=== PATIENT | female | born 1955 | race Caucasian/White ===

== ENCOUNTER 2020-05-09 12:18 | Inpatient (IN) | payer BC, MEDICARE ==
[2020-05-09] MEDS ORDERED: ASPIRIN 81 MG PO STA (12:45)
[2020-05-09] MEDS ORDERED: NITROGLYCERIN OINT 1 INCH/GM PACKET TOPICAL STA (12:45)
--- NOTE | 2020-05-09 12:49 | ED ---
General Adult HPI - General Chief complaint: Chest Pain Stated complaint: Chest Pain Time Seen by Provider: 05/09/20 12:32 Source: patient, RN notes reviewed Mode of arrival: ambulatory Limitations: no limitations - History of Present Illness Initial comments: Patient is a pleasant 64-year-old female presenting to the emergency Department with complaints of chest discomfort. Onset of symptoms was this morning. Discomfort is moderate rated 5/10. Discomfort feels like indigestion. Patient does have previous indigestion however there this is lasting longer and more severe. No radiation. Patient feels mildly nauseated. No dyspnea or diaphoresis. No leg pain or leg swelling. Patient has had high blood pressure recently. Patient saw her doctor on Monday and started enalapril. Blood pressure then was 200/110. - Related Data Allergies Allergy/AdvReac Type Severity Reaction Status Date / Time PAT Inhibitors Allergy Swelling Verified 05/09/20 12:31 Review of Systems ROS Statement: Those systems with pertinent positive or pertinent negative responses have been documented in the HPI. ROS Other: All systems not noted in ROS Statement are negative. Constitutional: Denies: fever Eyes: Denies: eye pain ENT: Denies: ear pain Respiratory: Denies: cough Cardiovascular: Reports: chest pain Endocrine: Denies: fatigue Gastrointestinal: Reports: nausea. Denies: abdominal pain Genitourinary: Denies: dysuria Musculoskeletal: Denies: back pain Skin: Denies: rash Neurological: Denies: weakness Past Medical History Past Medical History: Hypertension History of Any Multi-Drug Resistant Organisms: None Reported Past Surgical History: No Surgical Hx Reported Past Psychological History: ADD/ADHD Smoking Status: Never smoker Past Alcohol Use History: None Reported Past Drug Use History: None Reported General Exam Limitations: no limitations General appearance: alert, in no apparent distress Head exam: Present: normocephalic Eye exam: Present: normal appearance Neck exam: Present: normal inspection Respiratory exam: Present: normal lung sounds bilaterally. Absent: chest wall tenderness Cardiovascular Exam: Present: regular rate, normal rhythm Expanded Peripheral pulses: 2+: Radial (R), Radial (L), Dorsalis Pedis (R), Dorsalis Pedis (L) GI/Abdominal exam: Present: soft. Absent: tenderness Extremities exam: Present: normal inspection. Absent: pedal edema, calf tenderness Neurological exam: Present: alert Psychiatric exam: Present: normal affect, normal mood Skin exam: Present: normal color Course Vital Signs 05/09/20 12:26 Temperature 98.2 F Pulse Rate 86 Respiratory 18 Rate Blood Pressure 213/121 O2 Sat by Pulse 99 Oximetry EKG Findings - EKG Comments: EKG Findings:: Normal sinus rhythm 81. VA 158. QRS 86. QT 398. QTC 462. Normal axis. LVH criteria. No acute ST change. Medical Decision Making - Medical Decision Making Patient reevaluated and resting comfortably in bed. Blood pressure remains high despite nitroglycerin. IV Trandate ordered. Patient updated on results and plan. Dr. Carvajal has been paged for admission covering for Dr. Lopez. - Lab Data Result diagrams: 05/09/20 12:50 Lab Results 05/09/20 05/09/20 05/09/20 Range/Units 12:50 12:50 12:50 WBC 6.3 (3.8-10.6) k/uL RBC 6.19 H (3.80-5.40) m/uL Hgb 16.1 H (11.4-16.0) gm/dL Hct 49.2 H (34.0-46.0) % MCV 79.5 L (80.0-100.0) fL MCH 26.0 (25.0-35.0) pg MCHC 32.7 (31.0-37.0) g/dL RDW 13.3 (11.5-15.5) % Plt Count 310 (150-450) k/uL Neutrophils % 79 % Lymphocytes % 15 % Monocytes % 4 % Eosinophils % 1 % Basophils % 0 % Neutrophils # 5.0 (1.3-7.7) k/uL Lymphocytes # 0.9 L (1.0-4.8) k/uL Monocytes # 0.3 (0-1.0) k/uL Eosinophils # 0.1 (0-0.7) k/uL Basophils # 0.0 (0-0.2) k/uL PT 9.6 (9.0-12.0) sec INR 0.9 (<1.2) APTT 23.7 (22.0-30.0) sec Troponin I <0.012 (0.000-0.034) ng/mL - Radiology Data Radiology results: image reviewed (Chest x-ray shows no acute process) Critical Care Time Critical Care Time: Yes Total Critical Care Time: 31 Disposition Clinical Impression: Chest pain, Hypertensive urgency Disposition: ADMITTED IP TO THIS [facility] Condition: Serious Is patient prescribed a controlled substance at d/c from ED?: No Referrals: Saleem Lopez MD [Primary Care Provider] - 1-2 days Decision Time: 13:57
[2020-05-09 13:25] LABS: Basophils % (A) 0 %; Eosinophils # (A) 0.1 k/uL (0-0.7); Eosinophils % (A) 1 %; HCT 49.2 % (34.0-46.0); HGB 16.1 gm/dL (11.4-16.0); Lymphocytes # (A) 0.9 k/uL (1.0-4.8); Lymphocytes % (A) 15 %; MCHC 32.7 g/dL (31.0-37.0); MCV 79.5 fL (80.0-100.0); Mean Platelet Volume 7.2; Monocytes # (A) 0.3 k/uL (0-1.0); Monocytes % (A) 4 %; Neutrophils % (A) 79 %; Platelet Count 310 k/uL (150-450); RBC 6.19 m/uL (3.80-5.40); RDW 13.3 % (11.5-15.5); WBC 6.3 k/uL (3.8-10.6)
--- NOTE | 2020-05-09 13:34 | XR ---
EXAMINATION TYPE: XR chest 2V DATE OF EXAM: 05/09/2020 COMPARISON: Chest x-ray June 09, 2009 HISTORY: Chest pain. TECHNIQUE: Frontal and lateral views of the chest are obtained. FINDINGS: There is no focal air space opacity, pleural effusion, or pneumothorax seen. The cardiac silhouette size remains within normal limits. The osseous structures are demineralized. IMPRESSION: No acute cardiopulmonary process.
[2020-05-09 13:39] LABS: INR 0.9 (<1.2); Partial Thromboplastin Time 23.7 sec (22.0-30.0); Prothrombin Time 9.6 sec (9.0-12.0)
[2020-05-09] MEDS ORDERED: LABETALOL 5 MG/ML VIAL MDV IVP STA ×2 (13:56→14:39)
[2020-05-09] MEDS ORDERED: NITROGLYCERIN SL TABS 0.4 MG TAB SUBLINGUAL PRN (14:00)
[2020-05-09 14:26] LABS: ALT 41 U/L (4-34); AST 37 U/L (14-36); African American GFR (CKD) >90 (>60 ml/min/1.73 sqM); Albumin 4.9 g/dL (3.5-5.0); Alkaline Phosphatase 97 U/L (38-126); Anion Gap 11 mmol/L; Blood Urea Nitrogen 15 mg/dL (7-17); Calcium 10.3 mg/dL (8.4-10.2); Carbon Dioxide 27 mmol/L (22-30); Chloride 91 mmol/L (98-107); Glucose 98 mg/dL (74-99); Magnesium 1.7 mg/dL (1.6-2.3); Non-African American GFR(CKD) >90 (>60 ml/min/1.73 sqM); Potassium 3.4 mmol/L (3.5-5.1); Sodium 129 mmol/L (137-145); Total Bilirubin 0.8 mg/dL (0.2-1.3); Total Protein 8.1 g/dL (6.3-8.2)
[2020-05-09] MEDS ORDERED: ONDANSETRON 4 MG/2 ML VIAL IVP STA (14:51)
[2020-05-09] MEDS: METOPROLOL TARTRATE 25 MG TAB PO SCH ×2 (14:51→19:36)
[2020-05-09] MEDS ORDERED: NITROGLYCERIN OINT 1 INCH/GM PACKET TOPICAL SCH (18:00)
--- NOTE | 2020-05-09 21:37 | P.HPIM ---
History of Present Illness H&P Date: 05/09/20 Chief Complaint: Chest discomfort History of presenting complaint: This is a very pleasant 64-year-old patient of Dr. Saleem Lopez. Patient has known hypertension. He also takes small dose of Adderall for ADHD. Occasionally gets reflux symptoms. On Monday she went down for a physical to her family doctor who was out but is now sara she was present. Blood pressur e noted to be rather high over 200 systolic. Was prescribed medication that was apparently not available next day. Patient is told to increase her diuretic. Subsequently did get the another diuretic. Blood pressure still running about 1 170s. Today she noticed that she is having some indigestion-like symptoms in the chest. That persisted. Does not reason is no lightheadedness no perspiration. [place] tired and rundown. Has decided to come in. Blood pressure was found to be over 200 and the ER. Was given a dose of labetalol. Subsequently blood pressures come down and feeling better. Patient is relatively active otherwise. No prior cardiac history. Review of systems: GEN.: Tired EYES: None HEENT: None NECK: None RESPIRATORY: None CARDIOVASCULAR: As above GASTROINTESTINAL: Indigestion GENITOURINARY: None MUSCULOSKELETAL: None LYMPHATICS: None HEMATOLOGICAL: None PSYCHIATRY: Occasional anxiety NEUROLOGICAL: None Past medical history to include: Essential hypertension, ADHD, GERD Social history: Lives alone. Does not smoke or drink alcohol. Physical examination: VITAL SIGNS: 98.2, 86, 18, 1:30 no 121, 99% on room air GENERAL: BMI 29.1, sitting up, comfortable. EYES: Pupils equal. Conjunctiva normal. HEENT: External appearance of nose and ears normal, oral cavity grossly normal. NECK: JVD not raised; masses not palpable. HEART: First and second heart sounds are normal; no edema. LUNGS: Respiratory rate normal; clear to auscultation. ABDOMEN: Soft, nontender, liver spleen not palpable, no masses palpable. PSYCH: Alert and oriented x3; mood and affect normal. NEUROLOGICAL: Cranial nerves grossly intact; no facial asymmetry, power and sensation grossly intact. LYMPHATICS: No lymph nodes palpable in the axilla and neck INVESTIGATIONS, reviewed in the clinical context: White count 6.3 hemoglobin 16.1 platelets 310 potassium 3.4 sodium 129 crea tinine 0.48 potassium 10.3 Troponin I less than 0.0123 EKG tracing personally reviewed by me-sinus rhythm, LVH Chest x-ray film personally reviewed by me-lung garcia clear Assessment: -Hypertensive urgency -Hyponatremia due to diuretics -Hypokalemia due to diuretics -Hypocalcemia due to diuretics Plan: Patient is put on Lopressor in the ER. We'll also had lisinopril hydrochlorothiazide twice a day along with the Lopressor. We'll do a 2-D echocardiogram. Patient can have a stress test as outpatient. Cardiology opinion. Care was discussed with the patient question also. Past Medical History Past Medical History: Hypertension History of Any Multi-Drug Resistant Organisms: None Reported Past Surgical History: No Surgical Hx Reported Past Psychological History: ADD/ADHD Smoking Status: Never smoker Past Alcohol Use History: None Reported Past Drug Use History: None Reported - Past Family History Father Family Medical History: Dementia Mother Family Medical History: No Reported History Medications and Allergies Home Medications Medication Instructions Recorded Confirmed Type ALPRAZolam [Xanax] 0.25 mg PO BID PRN 05/09/20 05/09/20 History Triamterene 50 mg PO DAILY 05/09/20 05/09/20 History hydroCHLOROthiazide 25 mg PO DAILY 05/09/20 05/09/20 History Allergies Allergy/AdvReac Type Severity Reaction Status Date / Time PAT Inhibitors Allergy Swelling Verified 05/09/20 14:24 Physical Exam Vitals: Vital Signs Temp Pulse Pulse Resp BP BP Pulse Ox 05/09/20 15:47 98 F 71 16 126/78 97 05/09/20 15:28 152/85 05/09/20 15:12 82 16 150/104 100 05/09/20 14:54 76 18 180/108 97 05/09/20 14:34 69 16 183/102 98 05/09/20 14:08 64 16 203/127 98 05/09/20 12:26 98.2 F 86 18 213/121 99 Intake and Output 05/09/20 05/09/20 05/09/20 06:59 14:59 22:59 Other: Weight 81.647 kg 81.647 kg Results CBC & Chem 7: 05/09/20 12:50 05/09/20 14:01 Labs: Abnormal Lab Results - Last 24 Hours (Table) 05/09/20 05/09/20 Range/Units 12:50 14:01 RBC 6.19 H (3.80-5.40) m/uL Hgb 16.1 H (11.4-16.0) gm/dL Hct 49.2 H (34.0-46.0) % MCV 79.5 L (80.0-100.0) fL Lymphocytes # 0.9 L (1.0-4.8) k/uL Sodium 129 L (137-145) mmol/L Potassium 3.4 L (3.5-5.1) mmol/L Chloride 91 L (98-107) mmol/L Creatinine 0.48 L (0.52-1.04) mg/dL Calcium 10.3 H (8.4-10.2) mg/dL AST 37 H (14-36) U/L ALT 41 H (4-34) U/L Thrombosis Risk Factor Assmnt - Choose All That Apply Any of the Below Risk Factors Present?: Yes Other Risk Factors: Yes Each Risk Factor Represents 2 Points: Age 61-74 years Other congenital or acquired thrombophilia - If yes, enter type in comment: No Thrombosis Risk Factor Assessment Total Risk Factor Score: 2 Thrombosis Risk Factor Assessment Level: Low Risk
[2020-05-09] MEDS ORDERED: CALCIUM CARBONATE 500 MG CHEWABLE PO PRN (21:39)
[2020-05-09] MEDS ORDERED: MAG HYDROX/AL HYDROX/SIMETH 30 ML CUP PO PRN (21:39)
[2020-05-09] MEDS ORDERED: ALPRAZolam 0.25 MG TAB PO PRN (21:39)
[2020-05-09] MEDS ORDERED: ACETAMINOPHEN TAB 325 MG TAB PO PRN (21:39)
[2020-05-09] MEDS ORDERED: LACTULOSE 20 GM/30 ML CUP PO PRN (21:39)
[2020-05-09] MEDS ORDERED: NALOXONE 0.4 MG/ML 1 ML VIAL IV PRN (21:39)
[2020-05-09] MEDS ORDERED: MELATONIN 3 MG TABLET PO PRN (21:39)
[2020-05-09] MEDS ORDERED: MAGNESIUM HYDROXIDE 2,400 MG/10 ML CUP PO PRN (21:39)
[2020-05-09] MEDS ORDERED: SODIUM CHLORIDE 0.9% 1,000 ML IV SCH (21:45)
[2020-05-09] MEDS: METOPROLOL TARTRATE 50 MG TAB PO SCH (23:03)
[2020-05-10] MEDS: FAMOTIDINE 20 MG TAB PO SCH ×2 (01:12→08:53)
[2020-05-10] MEDS: ENOXAPARIN 40 MG/0.4 ML SYRINGE SQ SCH ×2 (01:12→08:53)
[2020-05-10 08:01] LABS: African American GFR (CKD) >90 (>60 ml/min/1.73 sqM); Anion Gap 9 mmol/L; Blood Urea Nitrogen 18 mg/dL (7-17); Calcium 10.3 mg/dL (8.4-10.2); Carbon Dioxide 28 mmol/L (22-30); Chloride 99 mmol/L (98-107); Cholesterol 271 mg/dL (<200); Glucose 95 mg/dL (74-99); HDL Cholesterol 104 mg/dL (40-60); LDL Cholesterol,Calculated 150 mg/dL (0-99); Non-African American GFR(CKD) >90 (>60 ml/min/1.73 sqM); Potassium 3.8 mmol/L (3.5-5.1); Sodium 136 mmol/L (137-145); Triglycerides 85 mg/dL (<150)
[2020-05-10 08:24] VITALS: RESP 18
[2020-05-10] MEDS: METOPROLOL TARTRATE 50 MG TAB PO SCH (08:54)
[2020-05-10] MEDS ORDERED: ASPIRIN 325 MG TAB PO SCH (09:00)
[2020-05-10] MEDS ORDERED: amLODIPine 5 MG TAB PO SCH (09:00)
[2020-05-10] MEDS ORDERED: ASPIRIN 81 MG PO SCH (09:00)
--- NOTE | 2020-05-10 10:35 | P.CRDCN ---
History of Present Illness History of present illness: HISTORY OF PRESENTING ILLNESS This is a pleasant 64-year-old female past medical history significant for hypertension and recent diagnosis of shingles. Does not follow the office with a trim sawyer for any reason. We have been asked to see in consultation for chest pain and hypertension. She states for the previous one week her blood pressures have been elevated. She has been working with her primary care physician in the recently increased her treatment. To 50 mg daily however her blood pressure remains elevated. She was advised to come to the hospital for further evaluation. On admission her blood pressure was 213/121. She was given IV labetalol, Lopressor and Norvasc. Her blood pressure this morning is 141/80. Heart rates in the 60s. She also states at times typically at night she has a burning sensation in the midsternal region that is resolved by taking Clarita- [place]. The pain does not radiate to the back, arm, neck or jaw. She has no associated shortness of breath, dizziness, nausea, vomiting, palpitations or diaphoresis. She states she underwent a stress test approximately 20 years ago when she was first diagnosed with hypertension. DIAGNOSTICS EKG reveals sinus mechanism with no acute ST or T wave abnormalities noted. Chest xray negative for an acute cardiopulmonary process. Laboratory reviewed, WBC 6.3, hemoglobin 16.1, platelets 310, sodium on admission 120 9 repeat today 136, potassium 3.8, creatinine 0.6, magnesium 1.7, cardiac enzymes negative 3, LDL 150 and HDL 104. Current cardiac medications include Triaminic care and 50 mg daily and hydrochlorothiazide 25 mg daily. REVIEW OF SYSTEMS At the time of my exam: CONSTITUTIONAL: Denies fever or chills. CARDIOVASCULAR: Denies chest pain, shortness of breath, orthopnea, PND or palpitations. RESPIRATORY: Denies cough. GASTROINTESTINAL: Denies abdominal pain, diarrhea, constipation, nausea or vomiting. MUSCULOSKELETAL: Denies myalgias. NEUROLOGIC: Denies numbness, tingling or weakness. ENDOCRINE: Denies fatigue, weight change, polydipsia or polyurina. GENITOURINARY: Denies burning, hematuria or urgency with micturation. HEMATOLOGIC: Denies history of anemia or bleeding. PHYSICAL EXAMINATION Blood pressure 144/89 heart rate 74 afebrile and maintaining oxygen saturation on room air. CONSTITUTIONAL: No apparent distress. HEENT: Head is normocephalic. Pupils are equal, round. Sclerae anicteric. Mucous membranes of the mouth are moist. No JVD. No carotid bruit. CHEST EXAMINATION: Lungs are clear to auscultation. No chest wall tenderness is noted on palpation or with deep breathing. HEART EXAMINATION: Regular rate and rhythm. S1, S2 heard. No murmurs, gallops or rub. ABDOMEN: Soft, nontender. Positive bowel sounds. Erythema and irritation noted to the right flank. EXTREMITIES: 2+ peripheral pulses, no lower extremity edema and no calf tenderness. NEUROLOGIC EXAMINATION: Patient is awake, alert and oriented x3. ASSESSMENT Chest pain, atypical for angina. An acute coronary event has been ruled out Hypertensive urgency Shingles Dyslipidemia PLAN An acute coronary event has been ruled out. Pain is atypical for angina and resolved with antacids. Discussed with the patient keeping her overnight for stress test in the morning and she would prefer to do this as an outpatient. This is a reasonable plan given her normal EKG and normal cardiac enzymes. Advised the patient to ambulate the halls and assess for exertional chest discomfort. Initiate aspirin 81 mg daily and atorvastatin 40 mg daily. Blood pressure seems well controlled on current regimen. Stable for discharge to follow-up in the office with Dr. Chandler in one to 2 weeks for outpatient stress testing. Thank you kindly for this consultation. Nurse Practitioner note has been reviewed, I agree with a documented findings and plan of care. Patient was seen and examined. Past Medical History Past Medical History: Hypertension History of Any Multi-Drug Resistant Organisms: None Reported Past Surgical History: No Surgical Hx Reported Past Psychological History: ADD/ADHD Smoking Status: Never smoker Past Alcohol Use History: None Reported Past Drug Use History: None Reported - Past Family History Father Family Medical History: Dementia Mother Family Medical History: No Reported History Medications and Allergies Home Medications Medication Instructions Recorded Confirmed Type ALPRAZolam [Xanax] 0.25 mg PO BID PRN 05/09/20 05/09/20 History Triamterene 50 mg PO DAILY 05/09/20 05/09/20 History hydroCHLOROthiazide 25 mg PO DAILY 05/09/20 05/09/20 History Allergies Allergy/AdvReac Type Severity Reaction Status Date / Time PAT Inhibitors Allergy Swelling Verified 05/09/20 14:24 Physical Exam Vitals: Vital Signs Temp Pulse Pulse Resp BP BP Pulse Ox 05/10/20 04:00 98.3 F 66 16 141/80 96 05/09/20 23:45 146/82 05/09/20 23:00 98.1 F 78 16 171/83 98 05/09/20 20:00 16 05/09/20 19:30 98.2 F 86 16 139/84 99 05/09/20 15:47 98 F 71 16 126/78 97 05/09/20 15:28 152/85 05/09/20 15:12 82 16 150/104 100 05/09/20 14:54 76 18 180/108 97 05/09/20 14:34 69 16 183/102 98 05/09/20 14:08 64 16 203/127 98 05/09/20 12:26 98.2 F 86 18 213/121 99 Intake and Output 05/09/20 05/10/20 05/10/20 22:59 06:59 14:59 Intake Total 540 Balance 540 Intake: Oral 540 Other: # Voids 1 Weight 81.647 kg 80.2 kg Results 05/09/20 12:50 05/10/20 07:08 Cardiac Enzymes 05/09/20 05/09/20 05/09/20 Range/Units 12:50 14:01 14:09 AST 37 H (14-36) U/L Troponin I <0.012 <0.012 (0.000-0.034) ng/mL 05/09/20 Range/Units 16:58 AST (14-36) U/L Troponin I <0.012 (0.000-0.034) ng/mL Coagulation 05/09/20 Range/Units 12:50 PT 9.6 (9.0-12.0) sec APTT 23.7 (22.0-30.0) sec Lipids 05/10/20 Range/Units 07:08 Triglycerides 85 (<150) mg/dL Cholesterol 271 H (<200) mg/dL HDL Cholesterol 104 H (40-60) mg/dL CBC 05/09/20 Range/Units 12:50 WBC 6.3 (3.8-10.6) k/uL RBC 6.19 H (3.80-5.40) m/uL Hgb 16.1 H (11.4-16.0) gm/dL Hct 49.2 H (34.0-46.0) % Plt Count 310 (150-450) k/uL Comprehensive Metabolic Panel 05/09/20 05/10/20 Range/Units 14:01 07:08 Sodium 129 L 136 L (137-145) mmol/L Potassium 3.4 L 3.8 (3.5-5.1) mmol/L Chloride 91 L 99 (98-107) mmol/L Carbon Dioxide 27 28 (22-30) mmol/L BUN 15 18 H (7-17) mg/dL Creatinine 0.48 L 0.60 (0.52-1.04) mg/dL Glucose 98 95 (74-99) mg/dL Calcium 10.3 H 10.3 H (8.4-10.2) mg/dL AST 37 H (14-36) U/L ALT 41 H (4-34) U/L Alkaline Phosphatase 97 (38-126) U/L Total Protein 8.1 (6.3-8.2) g/dL Albumin 4.9 (3.5-5.0) g/dL Current Medications Generic Name Dose Route Start Last Admin Trade Name Freq PRN Reason Stop Dose Admin Acetaminophen 650 mg 05/09/20 21:39 Acetaminophen Tab 325 Mg Tab PO Q6HR PRN Mild Pain or Fever > 100.5 Al Hydroxide/Mg Hydroxide 15 ml 05/09/20 21:39 Mag Hydrox/Al Hydrox/Simeth 30 Ml Cup PO Q6HR PRN Indigestion Alprazolam 0.25 mg 05/09/20 21:39 Alprazolam 0.25 Mg Tab PO Q6HR PRN Anxiety Amlodipine Besylate 2.5 mg 05/10/20 09:00 Amlodipine 5 Mg Tab PO DAILY [facility] Aspirin 325 mg 05/10/20 09:00 Aspirin 325 Mg Tab PO DAILY [facility] Calcium Carbonate/Glycine 1,000 mg 05/09/20 21:39 Calcium Carbonate 500 Mg Chewable PO Q4HR PRN Dyspepsia Enoxaparin Sodium 40 mg 05/09/20 22:00 05/10/20 01:12 Enoxaparin 40 Mg/0.4 Ml Syringe SQ Not Given DAILY [facility] Famotidine 20 mg 05/09/20 21:45 05/10/20 01:12 Famotidine 20 Mg Tab PO Not Given BID [facility] Lactulose 20 gm 05/09/20 21:39 Lactulose 20 Gm/30 Ml Cup PO DAILY PRN Constipation Magnesium Hydroxide 2,400 mg 05/09/20 21:39 Magnesium Hydroxide 2,400 Mg/10 Ml Cup PO DAILY PRN Constipation Melatonin 3 mg 05/09/20 21:39 Melatonin 3 Mg Tablet PO HS PRN Insomnia Metoprolol Tartrate 50 mg 05/09/20 22:00 05/09/20 23:03 Metoprolol Tartrate 50 Mg Tab PO 50 mg BID CAROL Administration Naloxone HCl 0.2 mg 05/09/20 21:39 Naloxone 0.4 Mg/Ml 1 Ml Vial IV Q2M PRN Opioid Reversal Nitroglycerin 0.4 mg 05/09/20 14:00 Nitroglycerin Sl Tabs 0.4 Mg Tab SUBLINGUAL Q5M PRN Chest Pain Sodium Chloride 10 ml 05/09/20 21:00 05/10/20 01:11 Sodium Chloride 0.9% Flush 10 Ml Syringe IV Not Given BID CAROL Intake and Output 05/09/20 05/10/20 05/10/20 22:59 06:59 14:59 Intake Total 540 Balance 540 Intake: Oral 540 Other: # Voids 1 Weight 81.647 kg 80.2 kg 05/09/20 12:50 05/10/20 07:08
[2020-05-10] MEDS ORDERED: ATORVASTATIN 40 MG TAB PO SCH (10:45)
[2020-05-10 12:03] VITALS: BP 154/92; PULSE 72; TEMP 98.4
--- NOTE | 2020-05-10 20:46 | P.DS ---
Providers Date of admission: 05/09/20 14:00 Expected date of discharge: 05/10/20 Attending physician: Claudio Caravjal Consults: 05/09/20 14:00 Consult Physician Urgent Consulting Provider: Sol Oneal Consult Reason/Comments: Chest pain, hypertensive urgency Do you want consulting provider notified?: Yes Primary care physician: Saleem Lopez MD Hospital Course: Chief Complaint: Chest discomfort History of presenting complaint: This is a very pleasant 64-year-old patient of Dr. Saleem Lopez. Patient has known hypertension. He also takes small dose of Adderall for ADHD. Occasionally gets reflux symptoms. On Monday she went down for a physical to her family doctor who was out but saw the nurse practitioner. Blood pressure noted to be rather high over 200 systolic. Was prescribed diuretics that was apparently not available next day. Patient is told to increase her diuretic. Subsequently did get the another diuretic. Blood pressure still running about 170s. Today she noticed that she is having some indigestion-like symptoms in the chest. That persisted. Does not reason is no lightheadedness no perspiration. [place] tired and rundown. Has decided to come in. Blood pressure was found to be over 200 and the ER. Was given a dose of labetalol. Subsequently blood pressures come down and feeling better. Patient is rela tively active otherwise. No prior cardiac history. Today feeling well. He received Lopressor and amlodipine. Blood pressure better controlled. Oral feeling much better. Care was discussed in detail with the patient. Also discussed started on Lipitor. She'll follow-up with any side effects with the PCP. Questions answered. Follow with cardiology Discussion and discharge planning more than 35 minutes Consultation: Dr. Goldy Chandler from cardiology Physical examination: VITAL SIGNS: 98.4, 72, 18, 154/92, 98% on room air GENERAL: Sitting up, comfortable EYES: Pupils equal. Conjunctiva normal. NECK: JVD not raised; masses not palpable. HEART: First and second heart sounds are normal; no edema. LUNGS: Respiratory rate normal; clear to auscultation. ABDOMEN: Soft, nontender, liver spleen not palpable, no masses palpable. PSYCH: Alert and oriented x3; mood and affect normal. INVESTIGATIONS, reviewed in the clinical context: Sodium 136 potassium 3.8 creatinine 0.60 Admission testing White count 6.3 hemoglobin 16.1 platelets 310 potassium 3.4 sodium 129 creatinine 0.48 potassium 10.3 Troponin I less than 0.0123 EKG tracing personally reviewed by me-sinus rhythm, LVH Chest x-ray film personally reviewed by me-lung garcia clear Assessment: -Hypertensive urgency-improve -Hyponatremia due to diuretics-improved -Hypokalemia due to diuretics improved -Hypercalcemia due to diuretics Disposition: Home Patient Condition at Discharge: Stable Plan - Discharge Summary Discharge Rx Participant: No New Discharge Prescriptions: New Aspirin 81 mg PO DAILY #30 chew Atorvastatin Calcium [Lipitor] 20 mg PO HS #30 tab Metoprolol Tartrate [Lopressor] 50 mg PO BID #60 tab amLODIPine [Norvasc] 2.5 mg PO DAILY #30 tab Famotidine [Pepcid] 20 mg PO BID #60 tab Continue ALPRAZolam [Xanax] 0.25 mg PO BID PRN PRN Reason: Anxiety Discontinued hydroCHLOROthiazide 25 mg PO DAILY Triamterene 50 mg PO DAILY Discharge Medication List ALPRAZolam [Xanax] 0.25 mg PO BID PRN 05/09/20 [History] Aspirin 81 mg PO DAILY #30 chew 05/10/20 [Rx] Atorvastatin Calcium [Lipitor] 20 mg PO HS #30 tab 05/10/20 [Rx] Famotidine [Pepcid] 20 mg PO BID #60 tab 05/10/20 [Rx] Metoprolol Tartrate [Lopressor] 50 mg PO BID #60 tab 05/10/20 [Rx] amLODIPine [Norvasc] 2.5 mg PO DAILY #30 tab 05/10/20 [Rx] Follow up Appointment(s)/Referral(s): Saleem Lopez MD [Primary Care Provider] - 1-2 days (call office monday for f/u appt) Hai Chandler MD [STAFF PHYSICIAN] - 2 Weeks (call office monday for f/u appointment) Patient Instructions/Handouts: Heart Healthy Diet (DC), Hypertension (DC) Discharge Disposition: HOME SELF-CARE
== END 2020-05-10 14:19 | disposition home or self-care (01) | DRG 305 ==
LOC: EC 12:18 → 3SCARD 14:00
PROVIDERS: ADMIT Hospitalist; ATTEND Hospitalist
DX: I16.0 Hypertensive urgency (principal); E87.1 Hypo-osmolality and hyponatremia; I10 Essential (primary) hypertension; F90.9 Attention-deficit hyperactivity disorder, unspecified type; E87.6 Hypokalemia; E83.52 Hypercalcemia; E78.5 Hyperlipidemia, unspecified; T50.2X5A Adverse effect of carbonic-anhydrase inhibitors, benzothiadiazides and other diuretics, initial encounter; Z79.899 Other long term (current) drug therapy; B02.9 Zoster without complications; Z82.0 Family history of epilepsy and other diseases of the nervous system; Z88.8 Allergy status to other drugs, medicaments and biological substances; R07.9 Chest pain, unspecified
CPT/HCPCS: 36415; 71046; 80048; 80053; 80061; 83735; 84484; 85025; 85610; 85730; 93005; 96374; 96375; 96376; 99291

== ENCOUNTER 2020-05-11 16:28 | Observation (INO) | payer MEDICARE ==
[2020-05-11 17:42] LABS: Basophils % (A) 0 %; Eosinophils # (A) 0.2 k/uL (0-0.7); Eosinophils % (A) 3 %; HCT 42.6 % (34.0-46.0); HGB 14.1 gm/dL (11.4-16.0); Lymphocytes # (A) 1.9 k/uL (1.0-4.8); Lymphocytes % (A) 27 %; MCH 26.4 pg (25.0-35.0); Mean Platelet Volume 6.7; Monocytes # (A) 0.4 k/uL (0-1.0); Monocytes % (A) 6 %; Neutrophils # (A) 4.3 k/uL (1.3-7.7); Neutrophils % (A) 62 %; Platelet Count 272 k/uL (150-450); RBC 5.33 m/uL (3.80-5.40); RDW 13.4 % (11.5-15.5); WBC 6.9 k/uL (3.8-10.6)
[2020-05-11] MEDS ORDERED: NITROGLYCERIN OINT 1 INCH/GM PACKET TOPICAL STA (17:47)
--- NOTE | 2020-05-11 17:57 | XR ---
EXAMINATION TYPE: XR chest 2V DATE OF EXAM: 05/11/2020 COMPARISON: 05/09/2020 HISTORY: Chest pain TECHNIQUE: FINDINGS: Heart is normal. Lungs are clear of infiltrate. There is no heart failure. Costophrenic ang les are clear. There are chest leads. Bony thorax is intact. IMPRESSION: No active cardiopulmonary disease. Normal heart. No change.
[2020-05-11 18:01] LABS: D-Dimer 0.36 mg/L FEU (<0.60); INR 0.9 (<1.2); Partial Thromboplastin Time 22.7 sec (22.0-30.0); Prothrombin Time 9.6 sec (9.0-12.0)
[2020-05-11 18:03] LABS: ALT 50 U/L (4-34); AST 44 U/L (14-36); African American GFR (CKD) >90 (>60 ml/min/1.73 sqM); Albumin 4.5 g/dL (3.5-5.0); Alkaline Phosphatase 83 U/L (38-126); Anion Gap 6 mmol/L; Blood Urea Nitrogen 19 mg/dL (7-17); Carbon Dioxide 28 mmol/L (22-30); Chloride 103 mmol/L (98-107); Creatine Kinase 71 U/L (30-135); Glucose 87 mg/dL (74-99); Magnesium 1.7 mg/dL (1.6-2.3); Non-African American GFR(CKD) >90 (>60 ml/min/1.73 sqM); Potassium 3.5 mmol/L (3.5-5.1); Sodium 137 mmol/L (137-145); Total Bilirubin 0.5 mg/dL (0.2-1.3); Total Protein 7.2 g/dL (6.3-8.2)
--- NOTE | 2020-05-11 18:05 | ED ---
Chest Pain HPI - General Chief Complaint: Chest Pain Stated Complaint: chest pain-revisit Time Seen by Provider: 05/11/20 16:42 Source: patient, RN notes reviewed, old records reviewed Mode of arrival: wheelchair Limitations: no limitations - History of Present Illness Initial Comments: This is a 64-year-old female who was just discharged from this hospital yesterday after evaluation for chest pain who states she had recurrence of her chest pain she states goes across her back and brought strap level and also has pain anterior chest wall. She states the pain is about 5/10 severity perhaps up to 8/10 it feels similar to what she was admitted with last week. No was chills nausea vomiting sweats or other symptoms a few makes it better nothing makes it worse. She did know is her blood pressures elevated also. MD Complaint: chest pain - Related Data Home Medications Medication Instructions Recorded Confirmed ALPRAZolam [Xanax] 0.25 mg PO BID PRN 05/09/20 05/09/20 Previous Rx's Medication Instructions Recorded Aspirin 81 mg PO DAILY #30 chew 05/10/20 Atorvastatin Calcium [Lipitor] 20 mg PO HS #30 tab 05/10/20 Famotidine [Pepcid] 20 mg PO BID #60 tab 05/10/20 Metoprolol Tartrate [Lopressor] 50 mg PO BID #60 tab 05/10/20 amLODIPine [Norvasc] 2.5 mg PO DAILY #30 tab 05/10/20 Allergies Allergy/AdvReac Type Severity Reaction Status Date / Time PAT Inhibitors Allergy Swelling Verified 05/11/20 16:38 Review of Systems ROS Statement: Those systems with pertinent positive or pertinent negative responses have been documented in the HPI. ROS Other: All systems not noted in ROS Statement are negative. EKG Findings - EKG Results: EKG: interpreted by NANO, sinus rhythm (Sinus rhythm a 6156 QRS 86 QT since QTC 360/[address]-T wave changes) Past Medical History Past Medical History: Hypertension History of Any Multi-Drug Resistant Organisms: None Reported Past Surgical History: No Surgical Hx Reported Past Psychological History: ADD/ADHD Smoking Status: Never smoker Past Alcohol Use History: None Reported Past Drug Use History: None Reported - Past Family History Father Family Medical History: Dementia Mother Family Medical History: No Reported History General Exam - General Exam Comments Initial Comments: This is a well-developed well-nourished awake alert oriented 3 female Limitations: no limitations General appearance: alert, in no apparent distress Head exam: Present: atraumatic, normocephalic, normal inspection Eye exam: Present: normal appearance, PERRL, EOMI. Absent: scleral icterus, conjunctival injection, periorbital swelling ENT exam: Present: normal exam, mucous membranes moist Neck exam: Present: normal inspection. Absent: tenderness, meningismus, lymphadenopathy Respiratory exam: Present: normal lung sounds bilaterally. Absent: respiratory distress, wheezes, rales, rhonchi, stridor Cardiovascular Exam: Present: regular rate, normal rhythm, normal heart sounds. Absent: systolic murmur, diastolic murmur, rubs, gallop, clicks GI/Abdominal exam: Present: soft, normal bowel sounds. Absent: distended, tenderness, guarding, rebound, rigid Extremities exam: Present: normal inspection, full ROM, normal capillary refill. Absent: tenderness, pedal edema, joint swelling, calf tenderness Back exam: Present: normal inspection Neurological exam: Present: alert, oriented X3, CN II-XII intact Psychiatric exam: Present: normal affect, normal mood Skin exam: Present: warm, dry, intact, normal color. Absent: rash Course Vital Signs 05/11/20 05/11/20 05/11/20 16:35 18:11 18:30 Temperature 98.4 F Pulse Rate 83 74 Respiratory 18 Rate Blood Pressure 186/93 209/104 209/104 O2 Sat by Pulse 97 99 Oximetry Chest Pain MDM - MDM Imaging reviewed no acute findings. Patient did get relief with nitroglycerin. She'll be admitted the case was discussed with Dr. Carvajal. Cardiology will be consulted Disposition Clinical Impression: Unstable angina pectoris, Chest pain Disposition: ADMITTED IP TO THIS [facility] Condition: Stable Referrals: Saleem Lopez MD [Primary Care Provider] - 1-2 days
[2020-05-11] MEDS ORDERED: SODIUM CHLORIDE 0.9% 1,000 ML IV STA (18:17)
[2020-05-11] MEDS ORDERED: cloNIDine HCL 0.1 MG TAB PO STA (18:55)
[2020-05-11] MEDS ORDERED: NITROGLYCERIN SL TABS 0.4 MG TAB SUBLINGUAL PRN (19:11)
[2020-05-11] MEDS ORDERED: HEPARIN SODIUM,PORCINE 5,000 UNIT/ML 1 ML VIAL IV ONE (19:11)
[2020-05-11] MEDS ORDERED: HEPARIN SOD,PORK IN 0.45% NACL 25,000 UNIT in 0.45% NACL 1 250ML.BAG IV SCH (19:15)
--- NOTE | 2020-05-11 19:15 | ED ---
Medical Decision Making - Medical Decision Making Patient did demonstrate elevated blood pressure in spite of IV hydration and her Usual medication she was given oral Catapres. - Lab Data Result diagrams: 05/11/20 17:28 05/11/20 17:28 Lab Results 05/11/20 05/11/20 05/11/20 Range/Units 17:28 17:28 17:28 WBC 6.9 (3.8-10.6) k/uL RBC 5.33 (3.80-5.40) m/uL Hgb 14.1 (11.4-16.0) gm/dL Hct 42.6 (34.0-46.0) % MCV 80.0 (80.0-100.0) fL MCH 26.4 (25.0-35.0) pg MCHC 33.0 (31.0-37.0) g/dL RDW 13.4 (11.5-15.5) % Plt Count 272 (150-450) k/uL Neutrophils % 62 % Lymphocytes % 27 % Monocytes % 6 % Eosinophils % 3 % Basophils % 0 % Neutrophils # 4.3 (1.3-7.7) k/uL Lymphocytes # 1.9 (1.0-4.8) k/uL Monocytes # 0.4 (0-1.0) k/uL Eosinophils # 0.2 (0-0.7) k/uL Basophils # 0.0 (0-0.2) k/uL PT 9.6 (9.0-12.0) sec INR 0.9 (<1.2) APTT 22.7 (22.0-30.0) sec D-Dimer 0.36 (<0.60) mg/L FEU Sodium 137 (137-145) mmol/L Potassium 3.5 (3.5-5.1) mmol/L Chloride 103 (98-107) mmol/L Carbon Dioxide 28 (22-30) mmol/L Anion Gap 6 mmol/L BUN 19 H (7-17) mg/dL Creatinine 0.51 L (0.52-1.04) mg/dL Est GFR (CKD-EPI)AfAm >90 (>60 ml/min/1.73 sqM) Est GFR (CKD-EPI)NonAf >90 (>60 ml/min/1.73 sqM) Glucose 87 (74-99) mg/dL Calcium 10.0 (8.4-10.2) mg/dL Magnesium 1.7 (1.6-2.3) mg/dL Total Bilirubin 0.5 (0.2-1.3) mg/dL AST 44 H (14-36) U/L ALT 50 H (4-34) U/L Alkaline Phosphatase 83 (38-126) U/L Creatine Kinase 71 (30-135) U/L Troponin I (0.000-0.034) ng/mL NT-Pro-B Natriuret Pep pg/mL Total Protein 7.2 (6.3-8.2) g/dL Albumin 4.5 (3.5-5.0) g/dL Lipase 114 (23-300) U/L 05/11/20 05/11/20 Range/Units 17:28 17:28 WBC (3.8-10.6) k/uL RBC (3.80-5.40) m/uL Hgb (11.4-16.0) gm/dL Hct (34.0-46.0) % MCV (80.0-100.0) fL MCH (25.0-35.0) pg MCHC (31.0-37.0) g/dL RDW (11.5-15.5) % Plt Count (150-450) k/uL Neutrophils % % Lymphocytes % % Monocytes % % Eosinophils % % Basophils % % Neutrophils # (1.3-7.7) k/uL Lymphocytes # (1.0-4.8) k/uL Monocytes # (0-1.0) k/uL Eosinophils # (0-0.7) k/uL Basophils # (0-0.2) k/uL PT (9.0-12.0) sec INR (<1.2) APTT (22.0-30.0) sec D-Dimer (<0.60) mg/L FEU Sodium (137-145) mmol/L Potassium (3.5-5.1) mmol/L Chloride (98-107) mmol/L Carbon Dioxide (22-30) mmol/L Anion Gap mmol/L BUN (7-17) mg/dL Creatinine (0.52-1.04) mg/dL Est GFR (CKD-EPI)AfAm (>60 ml/min/1.73 sqM) Est GFR (CKD-EPI)NonAf (>60 ml/min/1.73 sqM) Glucose (74-99) mg/dL Calcium (8.4-10.2) mg/dL Magnesium (1.6-2.3) mg/dL Total Bilirubin (0.2-1.3) mg/dL AST (14-36) U/L ALT (4-34) U/L Alkaline Phosphatase (38-126) U/L Creatine Kinase (30-135) U/L Troponin I <0.012 (0.000-0.034) ng/mL NT-Pro-B Natriuret Pep 196 pg/mL Total Protein (6.3-8.2) g/dL Albumin (3.5-5.0) g/dL Lipase (23-300) U/L Disposition Clinical Impression: Unstable angina pectoris, Chest pain, Hypertension Disposition: ADMITTED IP TO THIS HOSP Condition: Stable Referrals: Saleem Lopez MD [Primary Care Provider] - 1-2 days
[2020-05-11] MEDS ORDERED: METOPROLOL TARTRATE 5 MG/5 ML VIAL IVP STA (19:25)
[2020-05-11] MEDS: ALPRAZolam 0.25 MG TAB PO PRN (19:34)
[2020-05-11] MEDS: SODIUM CHLORIDE 0.9% 1,000 ML IV SCH (19:34)
[2020-05-11] MEDS ORDERED: METOPROLOL TARTRATE 50 MG TAB PO SCH (21:00)
[2020-05-11] MEDS: FAMOTIDINE 20 MG TAB PO SCH (21:51)
[2020-05-11] MEDS: ATORVASTATIN 20 MG TAB PO SCH (21:51)
--- NOTE | 2020-05-11 21:58 | P.HPIM ---
History of Present Illness H&P Date: 05/11/20 Chief Complaint: upper back pain History of presenting complaint: This is a very pleasant 64-year-old patient of Dr. Saleem Lopez. Patient has known hypertension. He also takes small dose of Adderall for ADHD. Occasionally gets reflux symptoms. patient was just in the hospital from May 09 through May 10 that is yesterday. Had presented with hypertensive urgency. Patient was discharged on Lopressor and amlodipine.patient's discharge blood pressure was 154/92. Patient also had some chest discomfort. Was seen by cardiology. Plan was to follow-up as an outpatient.patient this morning around 3:00 woke up and was having some pain across the back. No dizziness no lightheadedness no perspiration. Came into the ER with a blood pressure over 200 systolic. A bit tired. Patient is also been healing from shingles in the left hip area. Has been present for a few days. She states she is not slept well for quite a few days. Review of systems: GEN.: Tired EYES: None HEENT: None NECK: None RESPIRATORY: None CARDIOVASCULAR: back pain GASTROINTESTINAL: Indigestion GENITOURINARY: None MUSCULOSKELETAL: None LYMPHATICS: None HEMATOLOGICAL: None PSYCHIATRY: Occasional anxiety NEUROLOGICAL: sleeping well Past medical history to include: Essential hypertension, ADHD, GERD Social history: Lives alone. Does not smoke or drink alcohol. Physical examination: VITAL SIGNS: 98.4, 83, 18, 186.93, 97% on room air upon presentation GENERAL: BMI 28.7, sitting up, comfortable. EYES: Pupils equal. Conjunctiva normal. HEENT: External appearance of nose and ears normal, oral cavity grossly normal. NECK: JVD not raised; masses not palpable. HEART: First and second heart sounds are normal; no edema. LUNGS: Respiratory rate normal; clear to auscultation. ABDOMEN: Soft, nontender, liver spleen not palpable, no masses palpable. PSYCH: Alert and oriented x3; mood and affect bit anxious NEUROLOGICAL: Cranial nerves grossly intact; no facial asymmetry, power and sensation grossly intact. LYMPHATICS: No lymph nodes palpable in the axilla and neck INVESTIGATIONS, reviewed in the clinical context: white count 6.9 hemoglobin 14.1 platelets 232 potassium 3.5 creatinine 0.51 Troponin I 2 negative LDL 150 EKG tracing personally reviewed by me-normal sinus rhythm Chest x-ray film personally reviewed by me-Lung garcia clear Assessment: -Hypertensive urgency-this patient was just discharged yesterday how to be started on beta blockers and amlodipine. Patient's blood pressure is 150/90 before discharge. -Given that the pain was in the upper back mid scapular area-rule out aortic dissection -GERD -Possible angina equivalent Plan: urgent computed tomography scan of the chest with contrast has been ordered. We'll order 2-D echocardiogram and keep the patient nothing by mouth after midnight for possible stress test. Home medications resumed.aspirin. Nitropaste. care was discussed with the patient. Questions were answered. Past Medical History Past Medical History: Hypertension History of Any Multi-Drug Resistant Organisms: None Reported Past Surgical History: No Surgical Hx Reported Past Psychological History: ADD/ADHD Smoking Status: Never smoker Past Alcohol Use History: None Reported Past Drug Use History: None Reported - Past Family History Father Family Medical History: Dementia Mother Family Medical History: No Reported History Medications and Allergies Home Medications Medication Instructions Recorded Confirmed Type ALPRAZolam [Xanax] 0.25 mg PO BID PRN 05/09/20 05/11/20 History Aspirin 81 mg PO DAILY #30 chew 05/10/20 05/11/20 Rx Atorvastatin Calcium [Lipitor] 20 mg PO HS #30 tab 05/10/20 05/11/20 Rx Famotidine [Pepcid] 20 mg PO BID #60 tab 05/10/20 05/11/20 Rx Metoprolol Tartrate [Lopressor] 50 mg PO BID #60 tab 05/10/20 05/11/20 Rx amLODIPine [Norvasc] 2.5 mg PO DAILY #30 tab 05/10/20 05/11/20 Rx Allergies Allergy/AdvReac Type Severity Reaction Status Date / Time PAT Inhibitors Allergy Swelling Verified 05/11/20 19:33 Physical Exam Vitals: Vital Signs Temp Pulse Pulse Resp BP BP Pulse Ox 05/11/20 21:00 98.2 F 69 153/81 98 05/11/20 19:45 76 18 167/87 05/11/20 19:35 78 18 208/94 98 05/11/20 18:30 209/104 05/11/20 18:11 74 209/104 99 05/11/20 16:35 98.4 F 83 18 186/93 97 Intake and Output 05/11/20 05/11/20 05/11/20 06:59 14:59 22:59 Output Total 250 Balance -250 Output: Urine 250 Other: # Voids 1 Weight 80.739 kg Results CBC & Chem 7: 05/11/20 17:28 05/11/20 17:28 Labs: Abnormal Lab Results - Last 24 Hours (Table) 05/11/20 Range/Units 17:28 BUN 19 H (7-17) mg/dL Creatinine 0.51 L (0.52-1.04) mg/dL AST 44 H (14-36) U/L ALT 50 H (4-34) U/L
[2020-05-11] MEDS ORDERED: TEMAZEPAM 7.5 MG CAP PO PRN (21:59)
--- NOTE | 2020-05-11 22:44 | CT ---
EXAMINATION TYPE: CT angio chest DATE OF EXAM: 05/11/2020 COMPARISON: None HISTORY: back pain, r/o dissection CT DLP: 655.9 mGycm Automated exposure control for dose reduction was used. CONTRAST: Performed without and with IV Contrast, patient injected with 100 mL of Isovue 370. Images were obtained from the thoracic inlet to the diaphragm with IV contrast and 3-D post processed images. Exam also performed without IV contrast. The lungs are clear of infiltrate. There is no pleural effusion. Heart size is normal. There is no pe ricardial effusion. There is no mediastinal adenopathy. There is normal contrast opacification of the pulmonary arteries. There are no filling defects. Thoracic aorta is intact. Ascending aorta measures 3.7 cm. There is no aneurysm. There is no dissection. There is some fatty infiltration of the liver. Bony thorax appears intact. IMPRESSION: Negative exam. No evidence of pulmonary embolism. Mild fatty infiltration of the liver.
[2020-05-12] MEDS ORDERED: HEPARIN SODIUM,PORCINE 5,000 UNIT/ML 1 ML VIAL IV PRN (00:31)
[2020-05-12] MEDS: ACETAMINOPHEN TAB 325 MG TAB PO PRN ×2 (00:49→05:59)
[2020-05-12] MEDS: NITROGLYCERIN OINT 1 INCH/GM PACKET TOPICAL SCH ×2 (00:52→06:00)
[2020-05-12 03:19] LABS: Cholesterol 201 mg/dL (<200); Triglycerides 237 mg/dL (<150)
[2020-05-12 03:26] LABS: HDL Cholesterol 82 mg/dL (40-60); LDL Cholesterol,Calculated 72 mg/dL (0-99)
[2020-05-12] MEDS: amLODIPine 10 MG TAB PO SCH (08:43)
[2020-05-12] MEDS: FAMOTIDINE 20 MG TAB PO SCH ×2 (08:43→20:21)
[2020-05-12] MEDS: ASPIRIN 81 MG PO SCH (08:43)
[2020-05-12] MEDS ORDERED: amLODIPine 2.5 MG TAB PO SCH (09:00)
[2020-05-12] MEDS ORDERED: ASPIRIN 325 MG TAB PO SCH (09:00)
[2020-05-12] MEDS: TRIAMTERENE-HCTZ 37.5-25MG 1 EACH CAP PO SCH (09:45)
--- NOTE | 2020-05-12 10:29 | P.CRDCN ---
History of Present Illness History of present illness: HISTORY OF PRESENTING ILLNESS This is a pleasant 64-year-old female past medical history significant for hypertension. 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 We have been asked to see in consultation for chest pain and hypertension. She was discharged from the hospital on Monday evening after coming in for similar symptoms. Her blood pressure regimen was adjusted by the primary care team and she was discharged home on Lopressor 50 mg twice a day and amlodipine 2.5 mg daily. Prior to admission on Monday she was on triamterene hydrochlorothiazide which was discontinued at discharge. She states she took these new medications on Monday night and again on Monday morning however her blood pressure remained elevated. She woke up at 3:00 in the morning with symptoms of knee giving discomfort in the back along her bra strap that wrapped around at times it radiated through to the chest anteriorly. She continues to have intermittent episodes of chest and back discomfort that is alleviated by hot and cold packs being placed to the area. Her pain is not exacerbated by activity or exertion. She denies associated shortness of breath, dizziness, nausea, vomiting, diaphoresis or palpitations. On arrival to the emergency department her blood pressure was 186/93 in 209/104. She was given IV Lopressor, oral Catapres and Nitrol paste. Blood pressure this morning 181/102 with a heart rate of 81. DIAGNOSTICS EKG reveals sinus mechanism with no acute ST or T wave abnormalities noted. Chest xray negative for an acute cardiopulmonary process. CT of the chest is negative for pulmonary embolism with no aortic aneurysm or dissection noted. Laboratory reviewed, CBC unremarkable, d-dimer 0.36, sodium 137, potassium 3.5, creatinine 0.5, cardiac enzymes negative 3, NT proBNP 196, LDL 72 and HDL 82. Current cardiac medications include amlodipine 2.5 mg daily and Lopressor 50 mg twice a day. REVIEW OF SYSTEMS At the time of my exam: CONSTITUTIONAL: Denies fever or chills. CARDIOVASCULAR: Denies chest pain, shortness of breath, orthopnea, PND or palpitations. RESPIRATORY: Denies cough. GASTROINTESTINAL: Denies abdominal pain, diarrhea, constipation, nausea or vomiting. MUSCULOSKELETAL: Denies myalgias. NEUROLOGIC: Denies numbness, tingling or weakness. ENDOCRINE: Denies fatigue, weight change, polydipsia or polyurina. GENITOURINARY: Denies burning, hematuria or urgency with micturation. HEMATOLOGIC: Denies history of anemia or bleeding. PHYSICAL EXAMINATION CONSTITUTIONAL: No apparent distress. HEENT: Head is normocephalic. Pupils are equal, round. Sclerae anicteric. Mucous membranes of the mouth are moist. No JVD. No carotid bruit. CHEST EXAMINATION: Lungs are clear to auscultation. No chest wall tenderness is noted on palpation or with deep breathing. HEART EXAMINATION: Regular rate and rhythm. S1, S2 heard. No murmurs, gallops or rub. ABDOMEN: Soft, nontender. Positive bowel sounds. EXTREMITIES: 2+ peripheral pulses, no lower extremity edema and no calf tenderness. NEUROLOGIC EXAMINATION: Patient is awake, alert and oriented x3. ASSESSMENT Chest pain, atypical for angina. Pain is reproducible and alleviated by heat/cold packs. Hypertension, uncontrolled PLAN Resume Dyazide 37.5/25 mg daily. Increase amlodipine to 10 mg daily. Discontinue lopressor. Obtain 2D echocardiogram and doppler study to assess cardiac structure and function. Thank you kindly for this consultation. Nurse Practitioner note has been reviewed, I agree with a documented findings a nd plan of care. Patient was seen and examined. Past Medical History Past Medical History: Hypertension History of Any Multi-Drug Resistant Organisms: None Reported Past Surgical History: No Surgical Hx Reported Past Psychological History: ADD/ADHD Smoking Status: Never smoker Past Alcohol Use History: None Reported Past Drug Use History: None Reported - Past Family History Father Family Medical History: Dementia Mother Family Medical History: No Reported History Medications and Allergies Home Medications Medication Instructions Recorded Confirmed Type ALPRAZolam [Xanax] 0.25 mg PO BID PRN 05/09/20 05/11/20 History Aspirin 81 mg PO DAILY #30 chew 05/10/20 05/11/20 Rx Atorvastatin Calcium [Lipitor] 20 mg PO HS #30 tab 05/10/20 05/11/20 Rx Famotidine [Pepcid] 20 mg PO BID #60 tab 05/10/20 05/11/20 Rx Metoprolol Tartrate [Lopressor] 50 mg PO BID #60 tab 05/10/20 05/11/20 Rx amLODIPine [Norvasc] 2.5 mg PO DAILY #30 tab 05/10/20 05/11/20 Rx Allergies Allergy/AdvReac Type Severity Reaction Status Date / Time PAT Inhibitors Allergy Swelling Verified 05/11/20 19:33 Physical Exam Vitals: Vital Signs Temp Pulse Pulse Resp BP BP BP 05/12/20 09:00 81 18 05/12/20 08:35 98.8 F 81 18 181/102 05/12/20 07:57 05/12/20 03:00 97.9 F 68 161/79 05/11/20 21:00 98.2 F 69 153/81 05/11/20 19:45 76 18 167/87 05/11/20 19:35 78 18 208/94 05/11/20 18:30 209/104 05/11/20 18:11 74 209/104 05/11/20 16:35 98.4 F 83 18 186/93 Pulse Ox 05/12/20 09:00 05/12/20 08:35 98 05/12/20 07:57 96 05/12/20 03:00 98 05/11/20 21:00 98 05/11/20 19:45 05/11/20 19:35 98 05/11/20 18:30 05/11/20 18:11 99 05/11/20 16:35 97 Intake and Output 05/11/20 05/12/20 05/12/20 22:59 06:59 14:59 Intake Total 250 50.706 240 Output Total 500 400 Balance -250 -349.294 240 Intake: Intake, IV Titration 50.706 Amount Heparin Sod,Pork in 0.45% 50.706 NaCl 25,000 unit In 0.45 % NaCl 1 250ml.bag @ 12 UNITS/KG/HR 9.689 mls/hr IV .Q24H [facility] Rx#: [id number] Oral 250 240 Output: Urine 500 400 Other: Voiding Method Toilet Toilet Toilet # Voids 1 1 Weight 80.739 kg Results 05/11/20 17:28 05/11/20 17:28 Cardiac Enzymes 05/11/20 05/11/20 05/11/20 Range/Units 17:28 17:28 20:38 AST 44 H (14-36) U/L Troponin I <0.012 <0.012 (0.000-0.034) ng/mL 05/11/20 Range/Units 23:34 AST (14-36) U/L Troponin I <0.012 (0.000-0.034) ng/mL Coagulation 05/11/20 05/11/20 05/12/20 Range/Units 17:28 23:34 07:19 PT 9.6 (9.0-12.0) sec APTT 22.7 42.1 H 77.1 H (22.0-30.0) sec Lipids 05/11/20 Range/Units 23:34 Triglycerides 237 H (<150) mg/dL Cholesterol 201 H (<200) mg/dL HDL Cholesterol 82 H (40-60) mg/dL CBC 05/11/20 Range/Units 17:28 WBC 6.9 (3.8-10.6) k/uL RBC 5.33 (3.80-5.40) m/uL Hgb 14.1 (11.4-16.0) gm/dL Hct 42.6 (34.0-46.0) % Plt Count 272 (150-450) k/uL Comprehensive Metabolic Panel 05/11/20 Range/Units 17:28 Sodium 137 (137-145) mmol/L Potassium 3.5 (3.5-5.1) mmol/L Chloride 103 (98-107) mmol/L Carbon Dioxide 28 (22-30) mmol/L BUN 19 H (7-17) mg/dL Creatinine 0.51 L (0.52-1.04) mg/dL Glucose 87 (74-99) mg/dL Calcium 10.0 (8.4-10.2) mg/dL AST 44 H (14-36) U/L ALT 50 H (4-34) U/L Alkaline Phosphatase 83 (38-126) U/L Total Protein 7.2 (6.3-8.2) g/dL Albumin 4.5 (3.5-5.0) g/dL Current Medications Generic Name Dose Route Start Last Admin Trade Name Freq PRN Reason Stop Dose Admin Acetaminophen 650 mg 05/11/20 21:25 05/12/20 05:59 Acetaminophen Tab 325 Mg Tab PO 650 mg Q6HR PRN Administration Fever and/ or Pain Alprazolam 0.25 mg 05/11/20 19:14 05/11/20 19:34 Alprazolam 0.25 Mg Tab PO 0.25 mg BID PRN Administration Anxiety Amlodipine Besylate 10 mg 05/12/20 09:00 05/12/20 08:43 Amlodipine 10 Mg Tab PO 10 mg DAILY CAR[facility] Administration Aspirin 81 mg 05/12/20 09:00 05/12/20 08:43 Aspirin 81 Mg PO 81 mg DAILY CAROL Administration Atorvastatin Calcium 20 mg 05/11/20 21:00 05/11/20 21:51 Atorvastatin 20 Mg Tab PO 20 mg HS CAROL Administration Famotidine 20 mg 05/11/20 21:00 05/12/20 08:43 Famotidine 20 Mg Tab PO 20 mg BID CAROL Administration Heparin Sodium (Porcine) 0 unit 05/12/20 00:31 05/12/20 00:51 Heparin Sodium,Porcine 5,000 Unit/Ml 1 Ml Vial IV 2,018 unit PER PROTOCOL PRN Administration Low PTT Protocol Sodium Chloride 1,000 mls @ 20 mls/hr 05/11/20 19:15 05/11/20 19:34 Saline 0.9% IV 20 mls/hr .Q24H [facility] Administration Nitroglycerin 0.4 mg 05/11/20 19:11 Nitroglycerin Sl Tabs 0.4 Mg Tab SUBLINGUAL Q5M PRN Chest Pain Temazepam 7.5 mg 05/11/20 21:59 Temazepam 7.5 Mg Cap PO HS PRN Insomnia Triamterene/HCTZ 1 each 05/12/20 09:00 05/12/20 09:45 Triamterene-Hctz 37.5-25mg 1 Each Cap PO 1 each DAILY CAROL Administration Intake and Output 05/11/20 05/12/20 05/12/20 22:59 06:59 14:59 Intake Total 250 50.706 240 Output Total 500 400 Balance -250 -349.294 240 Intake: Intake, IV Titration 50.706 Amount Heparin Sod,Pork in 0.45% 50.706 NaCl 25,000 unit In 0.45 % NaCl 1 250ml.bag @ 12 UNITS/KG/HR 9.689 mls/hr IV .Q24H [facility] Rx#: [id number] Oral 250 240 Output: Urine 500 400 Other: Voiding Method Toilet Toilet Toilet # Voids 1 1 Weight 80.739 kg 05/11/20 17:28 05/11/20 17:28
[2020-05-12] MEDS: ALPRAZolam 0.25 MG TAB PO PRN ×2 (11:26→20:21)
[2020-05-12] MEDS ORDERED: LOSARTAN 25 MG TAB PO STA (12:52)
--- NOTE | 2020-05-12 15:00 | ECHOF ---
Referral Reason:cp, htn MEASUREMENTS -------- HEIGHT: 167.6 cm WEIGHT: 80.7 kg BP: 161/79 IVSd: 1.2 cm (0.6 - 1.1) LVIDd: 3.7 cm (3.9 - 5.3) LVPWd: 1.3 cm (0.6 - 1.1) EDV(Teich): 58 ml IVSs: 1.9 cm LVIDs: 2.3 cm LVPWs: 1.7 cm %IVS Thck: 59 % ESV(Teich): 17 ml EF(Teich): 70 % %FS: 39 % SV(Teich): 40 ml IVC: 10.79 mm LALs A4C: 4.6 cm LAAs A4C: 14.3 cm LAESV A-L A4C: 38 ml LAESV MOD A4C: 36 ml LALs A2C: 5.4 cm LAAs A2C: 19.5 cm LAESV A-L A2C: 60 ml LAESV MOD A2C: 54 ml LAESV(A-L): 51 ml LAESV Index (A-L): 26.80 ml/m Ao Diam: 2.6 cm (2.0 - 3.7) LA Diam: 2.4 cm (2.7 - 3.8) AV Cusp: 2.0 cm (1.5 - 2.6) EPSS: 0.5 cm MV E Simon: 1.03 m/s MV DecT: 224 ms MV Dec [place]: 4.6 m/s MV A Simon: 0.90 m/s MV E/A Ratio: 1.14 MV PHT: 65 ms MR Vmax: 3.57 m/s MR maxP.94 mmHg AV Vmax: 1.32 m/s AV maxP.93 mmHg TR Vmax: 2.45 m/s TR maxP.93 mmHg RAP: 5.00 mmHg RVSP: 28.93 mmHg MV EF SLOPE: 62.38 mm/s (70 - 150) MV EXCURSION: 12.49 mm (> 18.000) FINDINGS -------- This was a technically good study. The left ventricular size is normal. There is mild concentric left ventricular hypertrophy. Overa ll left ventricular systolic function is normal with, an EF between 55 - 60 %. The diastolic fillin g pattern is normal for the age of the patient 13.08. The right ventricle is normal in size. The left atrial size is normal. Normal LA size by volume 22+/-6 ml/m2. The right atrial size is normal. Interatrial and interventricular septum intact. The aortic valve is trileaflet and appears structurally normal. The mitral valve is normal. Mild mitral regurgitation is present. The tricuspid valve appears structurally normal. Trace tricuspid regurgitation present. Right spencer tricular systolic pressure is normal at < 35 mmHg. There is no pulmonic regurgitation present. The aortic root size is normal. Normal inferior vena cava with normal inspiratory collapse consistent with estimated right atrial pre ssure of 5 mmHg. There is no pericardial effusion. CONCLUSIONS -------- 1. The left ventricular size is normal. 2. There is mild concentric left ventricular hypertrophy. 3. Overall left ventricular systolic function is normal with, an EF between 55 - 60 %. 4. The diastolic filling pattern is normal for the age of the patient 13.08 5. Mild mitral regurgitation is present. 6. Trace tricuspid regurgitation present. 7. There is no pericardial effusion. CORPORATE TRAINING MANAGER: Jennifer Lee RD
--- NOTE | 2020-05-12 17:17 | P.PN ---
Progress Note - Text Progress Note Date: 05/12/20 Chief Complaint: upper back pain History of presenting complaint: This is a very pleasant 64-year-old patient of Dr. Saleem Lopez. Patient has known hypertension. He also takes small dose of Adderall for ADHD. Occasionally gets reflux symptoms. patient was just in the hospital from May 09 through May 10 that is yesterday. Had presented with hypertensive urgency. Patient was discharged on Lopressor and amlodipine.patient's discharge blood pressure was 154/92. Patient also had some chest discomfort. Was seen by cardiology. Plan was to follow-up as an outpatient.patient this morning around 3:00 woke up and was having some pain across the back. No dizziness no lightheadedness no perspiration. Came into the ER with a blood pressure over 200 systolic. A bit tired. Patient is also been healing from shingles in the left hip area. Has been present for a few days. She states she is not slept well for quite a few days. Hospital course: Computed tomography scan of the chest was done. Aneurysm-Aortic dissection was ruled out. Today-seen by cardiology. Started on Dyazide and increase the Norvasc to 10 mg. Lopressor was discontinued. Blood pressure is still on the high side. No chest pain. Review of systems: Was done for constitutional, cardiovascular, GI, pulmonary. relevant finding as above Active Medications Acetaminophen (Acetaminophen Tab 325 Mg Tab) 650 mg PO Q6HR PRN PRN Reason: Fever and/ or Pain Last Admin: 05/12/20 05:59 Dose: 650 mg Documented by: Alprazolam (Alprazolam 0.25 Mg Tab) 0.25 mg PO BID PRN PRN Reason: Anxiety Last Admin: 05/12/20 11:26 Dose: 0.25 mg Documented by: Amlodipine Besylate (Amlodipine 10 Mg Tab) 10 mg PO DAILY [facility] Last Admin: 05/12/20 08:43 Dose: 10 mg Documented by: Aspirin (Aspirin 81 Mg) 81 mg PO DAILY [facility] Last Admin: 05/12/20 08:43 Dose: 81 mg Documented by: Atorvastatin Calcium (Atorvastatin 20 Mg Tab) 20 mg PO HS [facility] Last Admin: 05/11/20 21:51 Dose: 20 mg Documented by: Famotidine (Famotidine 20 Mg Tab) 20 mg PO BID [facility] Last Admin: 05/12/20 08:43 Dose: 20 mg Documented by: Heparin Sodium (Porcine) (Heparin Sodium,Porcine 5,000 Unit/Ml 1 Ml Vial) 0 unit IV PER PROTOCOL PRN; Protocol PRN Reason: Low PTT Last Admin: 05/12/20 00:51 Dose: 2,018 unit Documented by: Sodium Chloride (Saline 0.9%) 1,000 mls @ 20 mls/hr IV .Q24H [facility] Last Admin: 05/11/20 19:34 Dose: 20 mls/hr Documented by: Nitroglycerin (Nitroglycerin Sl Tabs 0.4 Mg Tab) 0.4 mg SUBLINGUAL Q5M PRN PRN Reason: Chest Pain Temazepam (Temazepam 7.5 Mg Cap) 7.5 mg PO HS PRN PRN Reason: Insomnia Triamterene/HCTZ (Triamterene-Hctz 37.5-25mg 1 Each Cap) 1 each PO DAILY [facility] Last Admin: 05/12/20 09:45 Dose: 1 each Documented by: Physical examination: VITAL SIGNS: 98.3, 81, 18, 168/89, 97% on room air GENERAL: Sitting on a chair, comfortable EYES: Pupils equal. Conjunctiva normal. HEENT: External appearance of nose and ears normal, oral cavity grossly normal. NECK: JVD not raised; masses not palpable. HEART: First and second heart sounds are normal; no edema. LUNGS: Respiratory rate normal; clear to auscultation. ABDOMEN: Soft, nontender, liver spleen not palpable, no masses palpable. PSYCH: Alert and oriented x3; mood and affect bit anxious INVESTIGATIONS, reviewed in the clinical context: 2-D echocardiogram-EF 55-60% white count 6.9 hemoglobin 14.1 platelets 232 potassium 3.5 creatinine 0.51 Troponin I 2 negative LDL 150 EKG tracing personally reviewed by me-normal sinus rhythm Chest x-ray film personally reviewed by me-Lung garcia clear Chest CTA-negative for dissection or aneurysm Assessment: -Hypertensive urgency-this patient was just discharged on beta blockers and amlodipine. Patient's blood pressure is 150/90 before discharge. -GERD -ADHD -Chronic idiopathic insomnia -Possible angina equivalent Plan: Per cardiology patient started on amlodipine 10 mg and hydrochlorothiazide. Beta jose discontinued. We'll follow
[2020-05-12] MEDS: ATORVASTATIN 20 MG TAB PO SCH (20:20)
[2020-05-12] MEDS: SODIUM CHLORIDE 0.9% 1,000 ML IV SCH (20:23)
[2020-05-13] MEDS: TRIAMTERENE-HCTZ 37.5-25MG 1 EACH CAP PO SCH (07:43)
[2020-05-13] MEDS: ASPIRIN 81 MG PO SCH (07:43)
[2020-05-13] MEDS: amLODIPine 10 MG TAB PO SCH (07:43)
[2020-05-13] MEDS: FAMOTIDINE 20 MG TAB PO SCH (07:43)
[2020-05-13] MEDS ORDERED: LOSARTAN 50 MG TAB PO SCH (09:30)
--- NOTE | 2020-05-13 10:22 | P.PN ---
Subjective HISTORY OF PRESENTING ILLNESS This is a pleasant 64-year-old female past medical history significant for hypertension. She denies prior history of coronary artery disease and does not follow with a curb attendant for any reason. She is seen and examined up walking ambulating in the halls. She denies chest pain, shortness of breath, dizziness or palpitations. Echocardiogram obtained reveals preserved LV systolic function with ejection fraction 55-60% with mild mitral regurgitation noted. Blood pressure 163/96 heart rate 74 afebriled and maintaining oxygen saturation on room air. PHYSICAL EXAMINATION CONSTITUTIONAL: No apparent distress. HEENT: Head is normocephalic. Pupils are equal, round. Sclerae anicteric. Mucous membranes of the mouth are moist. No JVD. No carotid bruit. CHEST EXAMINATION: Lungs are clear to auscultation. No chest wall tenderness is noted on palpation or with deep breathing. HEART EXAMINATION: Regular rate and rhythm. S1, S2 heard. No murmurs, gallops or rub. EXTREMITIES: 2+ peripheral pulses, no lower extremity edema and no calf tenderness. ASSESSMENT Chest pain, atypical for angina. Pain is reproducible and alleviated by heat/cold packs. Hypertension, uncontrolled PLAN Add losartan 100 mg daily in the morning. She should take this along with her dyazide daily and amlodipine at bedtime. Stable for discharge from a cardiac perspective. Nurse Practitioner note has been reviewed, I agree with a documented findings and plan of care. Patient was seen and examined. Objective - Vital Signs Vital signs: Vital Signs Temp 97.7 F 05/13/20 07:41 Pulse 74 05/13/20 09:00 Resp 16 05/13/20 09:00 BP 163/96 05/13/20 07:41 Pulse Ox 97 05/13/20 07:41 Intake & Output 05/12/20 05/13/20 05/13/20 18:59 06:59 18:59 Intake Total 880 270 240 Output Total 450 Balance 880 -180 240 Intake: Oral 880 270 240 Output: Urine 450 Other: Voiding Method Toilet Toilet Toilet # Voids 4 1 - Labs CBC & Chem 7: 05/11/20 17:28 05/11/20 17:28
[2020-05-13 11:28] VITALS: BP 146/91; PULSE 96; RESP 18; TEMP 98.1
--- NOTE | 2020-05-13 21:15 | P.DS ---
Providers Date of admission: 05/12/20 16:30 Expected date of discharge: 05/13/20 Attending physician: Claudio Carvajal Consults: 05/11/20 19:12 Consult Physician Urgent Consulting Provider: Hai Chandler Consult Reason/Comments: Recurrent chest pain Do you want consulting provider notified?: Yes Primary care physician: Saleem Lopez MD Hospital Course: Chief Complaint: upper back pain History of presenting complaint: This is a very pleasant 64-year-old patient of Dr. Saleem Lopez. Patient has known hypertension. He also takes small dose of Adderall for ADHD. Occasionally gets reflux symptoms. patient was just in the hospital from May 09 through May 10 that is yesterday. Had presented with hypertensive urgency. Patient was discharged on Lopressor and amlodipine.patient's discharge blood pressure was 154/92. Patient also had some chest discomfort. Was seen by cardiology. Plan was to follow-up as an outpatient.patient this morning around 3:00 woke up and was having some pain across the back. No dizziness no lightheadedness no perspiration. Came into the ER with a blood pressure over 200 systolic. A bit tired. Patient is also been healing from shingles in the left hip area. Has been present for a few days. She states she is not slept well for quite a few days. Hospital course: Computed tomography scan of the chest was done. Aneurysm-Aortic dissection was ruled out. She medication adjusted. Today-seen by cardiology. Started on Dyazide and increase the Norvasc to 10 mg. Lopressor was discontinued. Feeling better. Last blood pressure was 146.91. Care was discussed with the patient. Consultation: Dr. Al Hannon from cardiology Physical examination: VITAL SIGNS: 98.1, 96, 18, 146.91, 97% on room air GENERAL: Sitting on a chair, comfortable EYES: Pupils equal. Conjunctiva normal. HEENT: External appearance of nose and ears normal, oral cavity grossly normal. NECK: JVD not raised; masses not palpable. HEART: First and second heart sounds are normal; no edema. LUNGS: Respiratory rate normal; clear to auscultation. ABDOMEN: Soft, nontender, liver spleen not palpable, no masses palpable. PSYCH: Alert and oriented x3; mood and affect bit anxious INVESTIGATIONS, reviewed in the clinical context: 2-D echocardiogram-EF 55-60% white count 6.9 hemoglobin 14.1 platelets 232 potassium 3.5 creatinine 0.51 Troponin I 2 negative LDL 150 EKG tracing personally reviewed by me-normal sinus rhythm Chest x-ray film personally reviewed by me-Lung garica clear Chest CTA-negative for dissection or aneurysm Assessment: -Hypertensive urgency POA -GERD -ADHD -Chronic idiopathic insomnia -Possible angina equivalent Disposition: Home Patient Condition at Discharge: Stable Plan - Discharge Summary New Discharge Prescriptions: New Losartan [Cozaar] 100 mg PO DAILY #90 tab Triamterene-Hctz 37.5-25Mg [Dyazide 37.5-25 Capsule] 1 each PO DAILY cap amLODIPine [Norvasc] 10 mg PO HS #90 tab Melatonin 3 mg PO HS #30 tablet Continue ALPRAZolam [Xanax] 0.25 mg PO BID PRN PRN Reason: Anxiety Aspirin 81 mg PO DAILY #30 chew Atorvastatin Calcium [Lipitor] 20 mg PO HS #30 tab Famotidine [Pepcid] 20 mg PO BID #60 tab Discontinued Metoprolol Tartrate [Lopressor] 50 mg PO BID #60 tab amLODIPine [Norvasc] 2.5 mg PO DAILY #30 tab Discharge Medication List ALPRAZolam [Xanax] 0.25 mg PO BID PRN 05/09/20 [History] Aspirin 81 mg PO DAILY #30 chew 05/10/20 [Rx] Atorvastatin Calcium [Lipitor] 20 mg PO HS #30 tab 05/10/20 [Rx] Famotidine [Pepcid] 20 mg PO BID #60 tab 05/10/20 [Rx] Losartan [Cozaar] 100 mg PO DAILY #90 tab 05/13/20 [Rx] Melatonin 3 mg PO HS #30 tablet 05/13/20 [Rx] Triamterene-Hctz 37.5-25Mg [Dyazide 37.5-25 Capsule] 1 each PO DAILY cap 05/13/20 [Rx] amLODIPine [Norvasc] 10 mg PO HS #90 tab 05/13/20 [Rx] Follow up Appointment(s)/Referral(s): Carlos Hannon MD [STAFF PHYSICIAN] - 1 Week (Office will call with an appointment date and time) Saleem Lopez MD [Primary Care Provider] - 1-2 days (message left with office/ if you do not hear from office by tommorrow am please call to arrange an appointment) Patient Instructions/Handouts: Hypertensive Crisis (GEN) Activity/Diet/Wound Care/Special Instructions: low salt diet daily BP am- keep log
[2020-05-16 19:37] LABS: Metanephrine, Free <25 pg/mL (< OR = 57); Normetanephrine, Free 85 pg/mL (< OR = 148); Total, Free (MN + NMN) 85 pg/mL (< OR = 205)
== END 2020-05-13 14:10 | disposition home or self-care (01) ==
LOC: EC 16:28 → 3NCARDOBS 19:14 → INTOOBSV 05-12 16:30 → OBSVTOIN 05-12 16:30 → UNDODISIN 05-13 14:10
PROVIDERS: ADMIT Hospitalist; ATTEND Hospitalist
DX: I16.0 Hypertensive urgency (principal); F90.9 Attention-deficit hyperactivity disorder, unspecified type; K21.9 Gastro-esophageal reflux disease without esophagitis; F51.01 Primary insomnia; F41.9 Anxiety disorder, unspecified; I10 Essential (primary) hypertension; M54.9 Dorsalgia, unspecified; I34.0 Nonrheumatic mitral (valve) insufficiency; Z79.899 Other long term (current) drug therapy; Z79.82 Long term (current) use of aspirin; Z88.8 Allergy status to other drugs, medicaments and biological substances; Z81.8 Family history of other mental and behavioral disorders
CPT/HCPCS: 93005 ×3; 96366 ×2; 96376 ×2; 96361; 96365; 96375; 99285; 36415; 94760; 93306; 83835; 85379; 83880; 80061; 80053; 82533; 82088; 82550; 84244; 83690; 83735; 84484; 85025; 85610; 85730 ×2; 71046; 71275; G0378 ×3; J1644 ×3; Q9967; 96374

== ENCOUNTER → 2021-03-26 | Outpatient (CLI) | payer MEDICARE ==
[2021-03-26 21:44] LABS: African American GFR (CKD) 104.6 (60.0-200.0); Albumin 4.9 g/dL (3.80-4.90); Albumin/Globulin Ratio 1.88 (1.60-3.17); Anion Gap 11.8 mmol/L (4.00-12.00); BUN/Creat Ratio 22.86 Ratio (12.00-20.00); Calcium 10.3 mg/dL (8.7-10.3); Carbon Dioxide 26.2 mmol/L (21.6-31.8); Chol/HDL Ratio 2.79; Globulin 2.6 g/dL (1.6-3.3); Non-African American GFR(CKD) 90.3 (60.0-200.0); Potassium 3.8 mmol/L (3.5-5.5); Total Bilirubin 0.6 mg/dL (0.2-1.2); Total Protein 7.5 g/dL (6.2-8.2)
== END | disposition home or self-care (01) ==
LOC: LABWHC1 13:59
PROVIDERS: ATTEND Family Medicine
DX: E78.5 Hyperlipidemia, unspecified (principal); E55.9 Vitamin D deficiency, unspecified
CPT/HCPCS: 36415; 80053; 80061; 82306